=== PATIENT | male | born 1985 | race African-American/Black ===

== ENCOUNTER 2016-09-27 12:05 | Emergency (ER) | payer MEDICAID ==
[~2016-09-27] VITALS: Ht 180.3 cm; Wt 62.8 kg
[2016-09-27 12:18] VITALS: BP 119/82
== END 2016-09-27 13:05 | disposition home or self-care (01) ==
LOC: ED 12:59
DX: J45.40 Moderate persistent asthma, uncomplicated (principal)
CPT/HCPCS: 93005; 99283

== ENCOUNTER 2017-10-28 13:59 | Emergency (ER) | payer MEDICAID ==
[~2017-10-28] VITALS: Ht 180.3 cm; Wt 70.3 kg
[2017-10-28] MEDS ORDERED: ALBUTEROL SULFATE 2.5 MG/3 ML ONE (14:18)
[2017-10-28] MEDS ORDERED: ALBUTEROL SULFATE 2.5 MG/3 ML NPPB ONE (14:30)
[2017-10-28 15:30] VITALS: BP 127/97
== END 2017-10-28 15:38 | disposition home or self-care (01) ==
LOC: ED 15:35
DX: J45.41 Moderate persistent asthma with (acute) exacerbation (principal); F17.200 Nicotine dependence, unspecified, uncomplicated
CPT/HCPCS: 93005; 94640; 99283; J7512; J7613